=== PATIENT | female | born 1950 | race Caucasian/White ===

== ENCOUNTER → 2018-12-29 | Outpatient (CLI) | payer MEDICARE ==
[~2018-12-29] MED LIST: ASPI-586 PO; BUSP10TA95 PO; CARV6.25 PO; CATHETER FLUSH 10 ML SYR IV PRN; CLOP75TA69 PO; FLUT1BLS IH; GABA-488 PO; LISI-552 PO; PRD10T PO; REGADENOSON 0.4 MG/5 ML SYR (LEXISCAN) IV ONE; ROSU10TA22 PO; RT-ALBUINH INH; TRAM50TA2 PO
--- NOTE | 2018-12-29 15:20 | STRESS TEST ---
DATE OF SERVICE: 12/29/2018 LEXISCAN MYOVIEW STRESS TEST REPORT REFERRING PHYSICIAN: [facility]. Baseline heart rate is 87. Baseline blood pressure is 146/75. Baseline EKG is sinus rhythm with no ischemic changes. In summary, the patient was injected with 10.45 mCi of technetium-99 Myoview and the resting images were obtained. Then, the patient received 0.4 mg of Lexiscan followed by 30.4 mCi of technetium-99 Myoview. Throughout the test, there were no EKG changes. The resting and stress images were reviewed and compared in the short axis, horizontal long axis, and vertical long axis views. Review of the images showed good radiotracer uptake with no significant ischemia or infarction. SSS is 0. TID value 1.09. On the gated images, the left ventricle appeared to be normal size with normal contractility. Calculated ejection fraction is 52%. CONCLUSION: 1. The patient tolerated Lexiscan well. 2. No significant ischemia or infarction on SPECT images. 3. Normal left ventricular size with normal contractility. Calculated ejection fraction is 52%. Job ID: [id number] DocumentID: [id number] Dictated Date: 12/29/2018 15:06:04 Hand Assembler Date: 12/29/2018 15:19:44 Dictated By: CEDRIC THOMPSON MD
== END ==
LOC: EDUNIT# 12-28 10:44 → CARD 07:57
PROVIDERS: ATTEND Internal Medicine Cardiovascular Disease
DX: R07.89 Other chest pain (principal); I25.10 Atherosclerotic heart disease of native coronary artery without angina pectoris; I10 Essential (primary) hypertension; E78.2 Mixed hyperlipidemia; I08.2 Rheumatic disorders of both aortic and tricuspid valves; Z72.0 Tobacco use
CPT/HCPCS: 78452; 93017; 93306

== ENCOUNTER 2019-01-05 07:53 | Day surgery (SDC) | payer MEDICARE ==
[~2019-01-05] VITALS: Ht 154.9 cm; Wt 54.4 kg
[2019-01-05] VITALS (14 sets, daily range): BP systolic 116–167; BP diastolic 44–94
[2019-01-05] MEDS ORDERED: HEParin (CATH LAB) 2,000 ML IV ONE (07:56)
[2019-01-05] MEDS ORDERED: NS IV 1000 ML 1,000 ML ONE (07:56)
[2019-01-05] MEDS ORDERED: NS IV 1000 ML 1,000 ML IV SCH (08:01)
[2019-01-05 08:24] LABS: HEMOGLOBIN 13.2 G/DL (11.5-16.0); MEAN PLATELET VOLUME 8.9 FL (7.4-10.4); RED CELL DISTRIBUTION WIDTH 14.5 % (10.0-14.5)
[2019-01-05] MEDS ORDERED: BUSP10TA95 PO (08:35)
[2019-01-05] MEDS ORDERED: ASPI-586 PO (08:35)
[2019-01-05] MEDS ORDERED: GABA-488 PO (08:35)
[2019-01-05] MEDS ORDERED: LISI-552 PO (08:35)
[2019-01-05] MEDS ORDERED: FLUT1BLS IH (08:35)
[2019-01-05] MEDS ORDERED: PRD10T PO (08:35)
[2019-01-05] MEDS ORDERED: CARV6.25 PO (08:35)
[2019-01-05] MEDS ORDERED: CLOP75TA69 PO (08:35)
[2019-01-05] MEDS ORDERED: TRAM50TA2 PO (08:35)
[2019-01-05] MEDS ORDERED: ROSU10TA22 PO (08:35)
[2019-01-05] MEDS ORDERED: RT-ALBUINH INH (08:35)
[2019-01-05 08:36] LABS: BILIRUBIN,URINE NEGATIVE (NEGATIVE); CLARITY,URINE CLEAR; COLOR,URINE YELLOW; GLUCOSE, URINE (UA) NEGATIVE (NEGATIVE); KETONES,URINE NEGATIVE (NEGATIVE); LEUKOCYTE ESTERASE ,URINE 1+ (NEGATIVE); NITRITE,URINE NEGATIVE (NEGATIVE); PH,URINE 5 (5-9); PROTEIN,URINE 1+ (NEGATIVE); UROBILINOGEN,URINE NORMAL (NORMAL)
[2019-01-05 08:39] LABS: INR 0.9 (0.8-1.4); PROTHROMBIN TIME PATIENT 12.4 SEC (12.2-14.7)
[2019-01-05 08:49] LABS: POTASSIUM 3.9 MMOL/L (3.6-5.0)
[2019-01-05 08:50] LABS: ALBUMIN 4.2 GM/DL (3.2-4.5); BILIRUBIN,TOTAL 0.3 MG/DL (0.1-1.0); CALCIUM 9.9 MG/DL (8.5-10.1); CREATININE SERUM 1.1 MG/DL (0.60-1.30)
--- NOTE | 2019-01-05 08:52 | Diagnostic Imaging Report ---
INDICATION: Preop for peripheral angiography and stent placement. Time of exam: 8:33 AM No prior studies are available for comparison. The heart size is normal. The pulmonary vascularity is unremarkable. The lungs are clear. No infiltrate, effusion or pneumothorax is detected. Impression: No acute cardiopulmonary process is detected. Dictated by: Dictated on workstation # [id number]
[2019-01-05 08:55] LABS: BACTERIA,URINE TRACE /HPF; RBC,URINE RARE /HPF
[2019-01-05] MEDS ORDERED: fentaNYL INJECTION 100 MCG/2 ML AMP ONE (09:38)
[2019-01-05] MEDS ORDERED: MIDAZOLAM 5 MG/5 ML (VERSED) VIAL ONE (09:38)
[2019-01-05] MEDS ORDERED: HEParin 1000 UNIT/ML (10ML VIAL) FOR BOLUS ONE (09:38)
--- NOTE | 2019-01-05 09:40 | Cardiac Procedure Note-CS/ASA ---
Pre-Procedure Note Pre-Op Procedure Note H&P Reviewed The H&P was reviewed, patient examined and no changes noted. Date H&P Reviewed: January 05, 2019 Time H&P Reviewed: 09:40 Conscious Sedation Pre-Proced Time 09:40 ASA Score 3 For ASA 3 and 4: Consider anesthesia and medical clearance. Also, for patients with a history of failed moderate sedation consider anesthesia. Airway Lungs Heart ASA score ASA 1: a normal healthy patient ASA 2: a patient with a mild systemic disease (mid diabetes, controlled hypertension, obesity x ASA 3: a patient with a severe systemic disease that limits activity (angina, COPD, prior Myocardial infarction) ASA 4: a patient with an incapacitating disease that is a constant threat to life (CHF, renal failure) ASA 5: a moribund patient not expected to survive 24 hrs. (ruptured aneurysm) ASA 6: a declared brain- patient whose organs are being harvested. For emergent operations, add the letter E after the classification Mallampati Classification Grade 3 Sedation Plan Analgesia, Amnesia, Plan communicated to team members, Discussed options with patient/fam, Discussed risks with patient/fam The patient is an appropriate candidate to undergo the planned procedure, sedation, and anesthesia. The patient immediately re-assessed prior to indication. CEDRIC THOMPSON MD January 05, 2019 09:40
[2019-01-05] MEDS: PANTOPRAZOLE 40 MG (PROTONIX) VIAL IV SCH (14:02)
[2019-01-05] MEDS ORDERED: RT-ALBUTEROL SULF 2.5 MG/3 ML PRE-MIX VIAL INH SCH (16:00)
[2019-01-05] MEDS ORDERED: PATIENT MAY USE OWN MEDS, ALL PO SCH (16:00)
[2019-01-05] MEDS: NS IV 1000 ML 1,000 ML IV SCH (17:33)
--- NOTE | 2019-01-05 18:14 | Peripheral Report ---
Peripheral Report Physician (s)/Distance Education Director (s) Physician CEDRIC THOMPSON MD Pre-Procedure Diagnosis Pre-Procedure Diagnosis: claudication Post-Procedure Note Procedure Start Date: January 05, 2019 Name of Procedure: Aortic arch angiogram Abdominal aortogram with bilateral runoff Findings/Procedure Note PROCEDURE NOTE: 68 years old lady with history of peripheral arterial disease, had multiple interventions in the past. Moved to our area recently, has been having increasing pain at her left leg and left foot which has been worsening recently. Came to establish care in my office. Had palpable pulse but was having significant pain in her left leg. AMADOU was normal, TBI was abnormal. Due to her extensive history I decided to proceed with peripheral angiogram. After explaining the procedure to the patient, all pros and cons were explained, all questions were answered. The patient signed the consent and then she was placed on the cardiac catheterization laboratory. The patient was placed on the cardiac catheterization laboratory. Groin was prepped SL fashion local anesthesia was used. Sheath placed in the right femoral artery, pigtail catheter was advanced to the abdominal aorta and automated runoff through the abdominal aorta and both legs was done. The flow at the left leg was slower than the right and I was suspicious of disease below the trifurcation I advanced a JR catheter to the bifurcation, patient had kissing iliac stents protruding into the abdominal aorta, I was unable to advance the wire through the left iliac stent I decided to do angiogram and runoff from the ostium then did DSA imaging to the trifurcation and at the foot level. Patient was noted to have severe stenosis in her renal arteries I decided to proceed with selective angiogram to the renal arteries and evaluate her underlying disease. I advanced IM curved short guide to the abdominal aorta and attempted to access the left renal artery without success. I injected small amount of contrast and I noted that there is a dissection in the aorta and subsequently I removed the catheter then advanced the pigtail catheter to the descending thoracic aorta and did angiogram then advance it to the aortic shadow and repeated the angiogram to the arch then pulled it down again to the descending aorta and used a larger amount of contrast for better visualization of the descending aorta and abdominal aorta. At that point over a wire I removed the pigtail catheter and removed the sheath. Patient was noted to have good pulse in her groin bilaterally and good dorsalis pedis pulse bilaterally with slightly better on the right side FINDINGS: Aortic arch angiogram: Ectasia of the aortic arch, no dissection, origin of the innominate artery, left carotid and left subclavian artery showed some tortuosity, ascending thoracic aorta is slightly prominent. Descending thoracic aortogram: Large aneurysm in the descending arises aorta extending to the abdominal aorta with heavy atherosclerotic plaques. Abdominal aortogram: Suprarenal aortic aneurysm, catheter induced dissection not flow limiting. Left renal artery has severe stenosis, right renal artery has mild to moderate stenosis, mesenteric artery were not well visualized, bif urcation showed bilateral iliac stents that are extending into the aorta. Patent with no obstructive disease. A stent was noted in the aorta infrarenally that is much smaller than the size of the aorta, not affecting the flow, CTA showed the stent in the SMA Bilateral lower extremity runoff: Patent right iliac stent with good flow down to the trifurcation, the left iliac stent is patent with slightly slower flow down in the left SFA to the trifurcation, below the trifurcation was the artery has sluggish flow, were not well visualized CONCLUSIONS: 1. Large descending thoracic aortic aneurysm extending to the abdominal aorta suprarenally with heavy atherosclerotic plaques and disease in the thoracic and abdominal aorta. 2. Small stent was noted in the abdomen, noted to be in SMA 3. Severe left renal artery stenosis 4. Mild to moderate right renal artery stenosis 5. Normal aortic arch, ascending aorta and great vessels of the neck with slight ectasia with no significant aneurysm or dissection 6. Patent bilateral iliac stents kissing stent extending into the abdominal aorta 7. Mild to moderate disease in the SFA bilaterally, the flow at the left lower extremity is slightly slower than the right down to the trifurcation, below the trifurcation of the arteries were not well visualized 8. Iatrogenic abdominal aortic dissection not affecting the flow DISCUSSION AND RECOMMENDATIONS: Patient had extensive aortic disease that requires surgical evaluation and intervention. She is considered at high risk. I was able to forward her angiogram imaging to Dr. Rock Rivas who reviewed them with me and recommended considering advanced tertiary care center evaluation as an outpatient, recommended monitoring her overnight than discharging her. I will continue monitoring and repeat CT of the aorta Anesthesia Type: Conscious Sedation Estimated blood loss (mL): 25 ml Contrast Amount: 144 ml Total Radiation Dose: 361 mGy Post-Procedure Diagnosis Post-operative diagnosis: Peripheral arterial disease Thoracic aortic aneurysm Abdominal aortic aneurysm Hypertension Hyperlipidemia CEDRIC THOMPSON MD January 05, 2019 18:14
[2019-01-05] MEDS: busPIRone 10 MG (BUSPAR) TAB PO SCH (20:49)
[2019-01-05] MEDS: CARVEDILOL 6.25 MG (COREG) TAB PO SCH (20:49)
[2019-01-05] MEDS: RT-ALBUTEROL SULF 2.5 MG/3 ML PRE-MIX VIAL INH SCH (20:52)
[2019-01-05] MEDS ORDERED: ROSUVASTATIN 10 MG (CRESTOR) TABLET PO SCH (21:00)
[2019-01-05] MEDS ORDERED: NON-FORMULARY MEDICATION 1 EA EA (Buspirone HCl 10 MG) PO SCH (21:00)
[2019-01-06] VITALS (12 sets, daily range): BP systolic 125–151; BP diastolic 46–74
[2019-01-06] MEDS: NS IV 1000 ML 1,000 ML IV SCH (02:33)
[2019-01-06 03:46] LABS: HEMOGLOBIN 11.3 G/DL (11.5-16.0); MEAN PLATELET VOLUME 9.4 FL (7.4-10.4); RED CELL DISTRIBUTION WIDTH 14.5 % (10.0-14.5); WHITE BLOOD COUNT 8.6 10^3/uL (4.3-11.0)
[2019-01-06 04:09] LABS: ALBUMIN 3.3 GM/DL (3.2-4.5); BILIRUBIN,TOTAL 0.2 MG/DL (0.1-1.0); CALCIUM 8.7 MG/DL (8.5-10.1); CREATININE SERUM 0.95 MG/DL (0.60-1.30); POTASSIUM 4.1 MMOL/L (3.6-5.0); TOTAL PROTEIN 5.3 GM/DL (6.4-8.2)
[2019-01-06] MEDS ORDERED: predniSONE 10 MG TAB PO SCH (07:00)
[2019-01-06] MEDS: RT-ALBUTEROL SULF 2.5 MG/3 ML PRE-MIX VIAL INH SCH (07:24)
--- NOTE | 2019-01-06 08:23 | Cardiology Progress Note ---
Subjective Date Seen by Provider: January 06, 2019 Time Seen by Provider: 08:19 Subjective/Events-last exam patient is laying down in bed, feeling well. Denied any chest pain or shortness of breath denied any abdominal pain, groin is healing well. Review of Systems General: No Chills, No Night Sweats, No Fatigue, No Malaise, No Appetite, No Other HEENT: No Head Aches, No Visual Changes, No Eye Pain, No Ear Pain, No Dysphasia, No Sinus Congestion, No Post Nasal Drip, No Sore Throat, No Other Pulmonary: No Dyspnea, No Cough, No Pleuritic Chest Pain, No Other Cardiovascular: No: Chest Pain, Palpitations, Orthopnea, Paroxysmal Noc. Dyspnea, Edema, Lt Headedness, Other Objective-Cardiology Exam Last Set of Vital Signs Vital Signs 01/05/19 01/05/19 01/06/19 20:00 21:00 08:00 Temp 96.6 Pulse 68 Resp 34 B/P (MAP) 136/53 (80) Pulse Ox 96 O2 Delivery Nasal Cannula O2 Flow Rate 2.00 Capillary Refill : Less Than 3 Seconds I&O Intake and Output 01/06/19 00:00 Intake Total 240 ml Balance 240 ml Intake Oral 240 ml # Voids 3 # Bowel Movements 2 General: Alert, Oriented X3, Cooperative HEENT: Atraumatic, PERRLA Neck: Supple, No JVD, No Thyromegaly Lungs: Clear to Auscultation, Normal Air Movement Heart: Regular Rate, Normal S1, Normal S2, No Murmurs Abdomen: Normal Bowel Sounds, Soft, No Tenderness, No Hepatosplenomegaly, No Masses Extremities: No Clubbing, No Cyanosis, No Edema, Normal Pulses, No Tenderness/Swelling Skin: No Rashes, No Breakdown, No Significant Lesion Neuro: Normal Gait, Normal Speech, Strength at 5/5 X4 Ext, Normal Tone, Sensation Intact Psych/Mental Status: Mental Status NL, Mood NL Results Lab Laboratory Tests 01/06/19 03:25 A/P-Cardiology Admission Diagnosis peripheral arterial disease Claudication Thoracic aortic aneurysm Hypertension Hyperlipidemia Assessment/Plan Peripheral arterial disease, thoracic aortic aneurysm, bilateral iliac stents, status post complex diagnostic angiogram, findings discussed below 1. Large descending thoracic aortic aneurysm extending to the abdominal aorta suprarenal with heavy atherosclerotic plaques and disease in the thoracic and abdominal aorta. 2. Small stent was noted in the abdomen, noted to be in SMA 3. Severe left renal artery stenosis 4. Mild to moderate right renal artery stenosis 5. Normal aortic arch, ascending aorta and great vessels of the neck with slight ectasia with no significant aneurysm or dissection 6. Patent bilateral iliac stents kissing stent extending into the abdominal aorta 7. Mild to moderate disease in the SFA bilaterally, the flow at the left lower extremity is slightly slower than the right down to the trifurcation, below the trifurcation of the arteries were not well visualized 8. Iatrogenic abdominal aortic dissection not affecting the flow Lower extremities pain, could be due to small vessel disease, medical therapy, not a candidate for intervention Hypertension, monitor blood pressure Hyperlipidemia, continue on statin Severe renal artery stenosis, monitor renal function Had a long discussion with Dr. Rock Rivas regarding her condition, she is considered at very high risk for any seizure or surgery. Recommended referring [facility] to [facility] such as as an outpatient CEDRIC THOMPSON MD January 06, 2019 08:23
--- NOTE | 2019-01-06 08:27 | Discharge Inst-Post CATH ---
Discharge Inst-CATH/EP Post Cardiac Cath/EP D/C Inst Follow Up/Plan Appointment with Dr. THOMPSON's office in 2 weeks <b>CARDIAC CATH/EP PROCEDURE DISCHARGE INSTRUCTIONS</b> Cardiac Rehab Please be expecting a follow up call from Cardiac Rehab within in one week. ACTIVITY * Go Home directly and rest. * Limit activity of the leg (or wrist if it was used) for 7 days including aerobics, swimming, jogging, bicycling, etc. * Restrict stair-climbing for 7 days if possible, if not, climb up with your non-cath leg, then bring together on the same step. * Avoid lifting, pushing, pulling or excessive movement of the affected extremity for 7 days. * Customary sexual activity may be resumed after 2 days-use caution not to use a position that strains or causes pain to the affected extremity. * No driving for 24 hours. * NO SMOKING. * Avoid straining for bowel movements for 7 days. * Gentle walking on level ground is allowed. * Returning to work will depend on the type of procedure and the results. Your doctor will discuss this with you. CALL YOUR DOCTOR FOR ANY OF THE FOLLOWING: *If bleeding from the puncture site occurs- Apply gentle pressure to site with clean cloth and call your doctor or EMS. * If a knot or lump forms under the skin, increases in size, or causes pain. * If bruising appears to be worsening or moving further down your leg instead of disappearing. * Temperature above 101 F. CARE OF YOUR GROIN INCISION; * Bruising or purple discoloration of the skin near the puncture site is common. * You may shower only, no bathtub bathing for 5 days. Be careful to avoid slipping as your leg may feel stiff. * If a closure device was used on your femoral artery, please see the attached guide regarding care of the device and your leg. * Leave dressing on FOR 24 hours. CARE OF YOUR WRIST INCISION; * Bruising or purple discoloration of the skin near the puncture site is common. * You may shower. * DO NOT submerge wrist. * Leave dressing on FOR 24 hours. CEDRIC THOMPSON MD January 06, 2019 08:27
[2019-01-06] MEDS ORDERED: IOHEXOL 350 MG/ML 100 ML (OMNIPAQUE 350) VIAL IV ONE (08:45)
[2019-01-06] MEDS ORDERED: NS 100 ML (IVPB) BAG IV ONE (08:45)
[2019-01-06] MEDS ORDERED: HOLD METFORMIN - RECEIVED CONTRAST 20 ML VIAL IV SCH (08:45)
[2019-01-06] MEDS ORDERED: CLOPIDOGREL 75 MG (PLAVIX) TABLET PO SCH (09:00)
[2019-01-06] MEDS ORDERED: NON-FORMULARY MEDICATION 1 EA EA (Fluticasone/Vilanterol (Breo Ellipta 200-25 Mcg INH) 1 E IH SCH (09:00)
[2019-01-06] MEDS ORDERED: ASPIRIN E.C. 81 MG (ECOTRIN) TAB PO SCH (09:00)
[2019-01-06] MEDS ORDERED: lisINopril 20 MG (PRINIVIL) TABLET PO SCH (09:00)
[2019-01-06] MEDS ORDERED: GABAPENTIN 300 MG (NEURONTIN) CAP PO SCH (09:00)
[2019-01-06] MEDS ORDERED: NON-FORMULARY MEDICATION 1 EA EA (Aspirin (Aspir 81) 81 MG) PO SCH (09:00)
[2019-01-06] MEDS: PANTOPRAZOLE 40 MG (PROTONIX) VIAL IV SCH (09:03)
[2019-01-06] MEDS: busPIRone 10 MG (BUSPAR) TAB PO SCH (09:04)
[2019-01-06] MEDS: CARVEDILOL 6.25 MG (COREG) TAB PO SCH (09:04)
--- NOTE | 2019-01-06 12:49 | Diagnostic Imaging Report ---
INDICATION: Aortic aneurysm. TECHNIQUE: Axial imaging through the chest, abdomen, and upper pelvis was performed before and after the administration of intravenous contrast. CT angiography protocol was utilized. Multiplanar, 3D, and MIP reformations were also performed. COMPARISON: No prior CT studies are available for comparison. FINDINGS: The thyroid is enlarged and contains multiple low-density masses, suggestive of a multinodular goiter. There is a three-vessel branching pattern to the aortic arch. The aortic root and ascending thoracic aorta appear to be normal in caliber. There is aneurysmal dilatation of the proximal aspect of the aortic arch measuring up to 4.5 cm in transverse diameter. There is marked irregular plaquing throughout the arch as well as descending thoracic aorta with multifocal ulcerative plaques. There is aneurysmal dilatation of the descending thoracic aorta. At the hiatus, a large amount of circumferential mural plaquing is present. An aneurysm measures approximately 5.9 cm AP x 6.5 cm transverse. Just beyond the aortic hiatus and into the abdomen, there is a dissection flap present. Dense contrast is identified within the false lumen from conventional angiography study of one day earlier. Great vessels arise from the true lumen of the abdominal aorta. There may be a stenosis of the celiac origin. There is a stent within the superior mesenteric artery which appears to be patent. The upper abdominal aorta at the level of the dissection measures approximately 5.6 x 4.9 cm. Aorta appears to be normal in caliber at the level of the renal vessels. There is apparent high-grade stenosis of proximal aspect of the left renal artery. There is calcified plaque in the proximal right renal artery, however it appears patent. Continued significant mural thrombus within the abdominal aorta is seen throughout. There are kissing iliac stents bilaterally in the distal abdominal aorta. No periaortic fluid collection or evidence of rupture is identified. Liver is unremarkable. There are some stones within the gallbladder. No biliary ductal dilatation is seen. The pancreas and spleen are unremarkable. No adrenal mass is identified. A right renal cyst is noted. Bowel loops are unremarkable. There is no ascites. IMPRESSION: 1. Thoracic aortic aneurysm involving the aortic arch as well as the descending thoracic aorta. There is marked irregular mural plaquing throughout the thoracic aorta with some probable ulcerative plaque present. No thoracic aortic dissection is seen. 2. Suprarenal abdominal aortic aneurysm which does contain a short segment of dissection. The great vessels appear to arise from the true lumen. No periaortic fluid collection or rupture is seen. 3. Findings suggestive of a high-grade stenosis of the left renal artery. 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 SMA does contain a stent and appears to be patent. Dictated by: Dictated on workstation # [id number]
== END 2019-01-06 11:18 | disposition home or self-care (01) ==
LOC: CATH 07:53 → ICU 11:33 → CATH 01-06 11:18
PROVIDERS: ATTEND Internal Medicine Cardiovascular Disease
DX: I70.203 Unspecified atherosclerosis of native arteries of extremities, bilateral legs (principal); I71.4 Abdominal aortic aneurysm, without rupture; I71.2 Thoracic aortic aneurysm, without rupture; I10 Essential (primary) hypertension; E78.5 Hyperlipidemia, unspecified; I70.1 Atherosclerosis of renal artery; I25.10 Atherosclerotic heart disease of native coronary artery without angina pectoris; E78.2 Mixed hyperlipidemia; R07.89 Other chest pain; F17.210 Nicotine dependence, cigarettes, uncomplicated; R09.89 Other specified symptoms and signs involving the circulatory and respiratory systems; J44.9 Chronic obstructive pulmonary disease, unspecified; R82.998 Other abnormal findings in urine; Z79.899 Other long term (current) drug therapy; Z79.82 Long term (current) use of aspirin; Z79.02 Long term (current) use of antithrombotics/antiplatelets
CPT/HCPCS: 36415; 71045; 71275; 74175; 75630; 80053; 80061; 81000; 85027; 85610; 85730; 87081; 87088; 94640

== ENCOUNTER 2019-01-20 20:56 | Outpatient (CLI) | payer MEDICARE ==
[~2019-01-20 20:56] MED LIST changes: -CATHETER FLUSH 10 ML SYR IV PRN; -REGADENOSON 0.4 MG/5 ML SYR (LEXISCAN) IV ONE
== END 2019-01-21 06:45 | disposition home or self-care (01) ==
LOC: SLEEP 20:56
PROVIDERS: ATTEND Nurse Practitioner Family
DX: G47.10 Hypersomnia, unspecified (principal); G47.36 Sleep related hypoventilation in conditions classified elsewhere; R05 Cough; R09.02 Hypoxemia; R06.89 Other abnormalities of breathing
CPT/HCPCS: 95810

== ENCOUNTER → 2019-03-07 | Outpatient (CLI) | payer MEDICARE ==
[~2019-03-07] MED LIST changes: +RT-ALBUTEROL SULF 2.5 MG/3 ML PRE-MIX VIAL INH ONE
[2019-03-07 15:45] LABS: ABG BASE EXCESS 9.1 MMOL/L (-2.5-2.5); ABG OXYGEN SATURATION 91 % (94-100); ABG PCO2 53 MMHG (35-45); ABG PH 7.42 (7.37-7.43); ABG PO2 55 MMHG (79-93); ABG TCO2 35.7 MMOL/L (21.0-31.0); ALLENS TEST YES-POS; INSPIRED O2 RA; PATIENT TEMP 97; VENTILATOR NO
== END ==
LOC: RT 14:36
PROVIDERS: ATTEND Nurse Practitioner Family
DX: J30.9 Allergic rhinitis, unspecified (principal); G47.10 Hypersomnia, unspecified; G47.36 Sleep related hypoventilation in conditions classified elsewhere; R09.02 Hypoxemia
CPT/HCPCS: 36600; 82805; 94060; 94726

== ENCOUNTER 2019-03-17 20:42 | Outpatient (CLI) | payer MEDICARE ==
[~2019-03-17 20:42] MED LIST changes: -RT-ALBUTEROL SULF 2.5 MG/3 ML PRE-MIX VIAL INH ONE
== END 2019-03-18 06:23 | disposition home or self-care (01) ==
LOC: SLEEP 20:42
PROVIDERS: ATTEND Nurse Practitioner Family
DX: G47.33 Obstructive sleep apnea (adult) (pediatric) (principal); G47.10 Hypersomnia, unspecified; G47.36 Sleep related hypoventilation in conditions classified elsewhere
CPT/HCPCS: 95811

== ENCOUNTER 2019-04-19 09:23 | Emergency (ER) | payer MEDICARE ==
[~2019-04-19] VITALS: Ht 157.5 cm; Wt 55.8 kg
[2019-04-19] MEDS ORDERED: RT-ALBUTEROL/IPRATROPIUM 3 ML (DUONEB) VIAL INH ONE ×3 (09:45→14:15)
[2019-04-19] MEDS ORDERED: methylPREDNISolone 125 MG (Solu-MEDROL) VIAL IVP ONE (09:45)
--- NOTE | 2019-04-19 09:50 | ED Dyspnea ---
General Stated Complaint: SOB Source of Information: Patient Exam Limitations: Language Barrier (daughter is translating) History of Present Illness Date Seen by Provider: Apr 19, 2019 Time Seen by Provider: 09:40 Initial Comments The patient is a very pleasant 68-year-old female who presents for evaluation of shortness of breath and decreased appetite over the last 2 days. The patient is primarily [place]raini-speaking and her daughter is present and is translating. The patient declined any translating services. The patient is alert and oriented 4, calm, and appears to be in mild respiratory distress. She does have a history of COPD and she is trying to quit smoking at this time. She denies fevers or chills, productive cough, chest pain, diaphoresis, palpitations, abdominal pain, back or flank pain, chest pain, dizziness, or syncope. Timing/Duration: Other (2 days) Severity: Moderate Activities at Onset: None Prior Episodes/Possible Cause: Occasional Episodes Modifying Factors: Improves With Activity (worsens), Improves With Albuterol Nebulizer (improves) Associated Symptoms: Cough, Loss of Appetite, Wheezing Allergies and Home Medications Allergies Coded Allergies: aspirin (Verified Allergy, Mild, 01/05/19) Home Medications Albuterol Sulfate 1 Puff Puff, 2 PUFF INH QID, (Reported) 1 PUFF = 90 MCG Aspirin 81 Mg Tablet.dr, 81 MG PO DAILY, (Reported) Buspirone HCl 10 Mg Tablet, 10 MG PO BID, (Reported) Carvedilol 6.25 Mg Tablet, 6.25 MG PO BID, (Reported) Clopidogrel Bisulfate 75 Mg Tablet, 75 MG PO DAILY, (Reported) Fluticasone/Vilanterol 1 Each Blst.w.dev, 1 EACH IH DAILY, (Reported) Gabapentin 300 Mg Capsule, 300 MG PO DAILY, (Reported) Lisinopril 20 Mg Tablet, 20 MG PO DAILY, (Reported) Prednisone 10 Mg Tab, 10 MG PO DAILY, (Reported) Rosuvastatin Calcium 10 Mg Tablet, 10 MG PO HS, (Reported) Tramadol HCl 50 Mg Tablet, 50 MG PO Q4H, (Reported) Patient Home Medication List Home Medication List Reviewed: Yes Review of Systems Review of Systems Constitutional: other (decreased appetite) EENTM: no symptoms reported Respiratory: cough, short of breath, wheezing Cardiovascular: no symptoms reported Gastrointestinal: no symptoms reported Genitourinary: no symptoms reported Musculoskeletal: no symptoms reported Skin: no symptoms reported Psychiatric/Neurological: No Symptoms Reported Endocrine: No Symptoms Reported Hematologic/Lymphatic: No Symptoms Reported All Other Systems Reviewed Negative Unless Noted: Yes Past Ywklwhn-Jgubjp-Wyrefs Hx Past Med/Social Hx: Reviewed Nursing Past Med/Soc Hx Patient Social History Type Used: Cigarettes 2nd Hand Smoke Exposure: Yes Recent Hopitalizations: Yes Past Medical History Bowel Surgery Respiratory: Yes Asthma Currently Using CPAP: Yes Cardiac: Yes High Cholesterol Neurological: No Genitourinary: No Gastrointestinal: Yes Irritable Bowel Cancer: No Blood Disorders: No Adverse Reaction/Blood Tranf: No Physical Exam Vital Signs Vital Signs - First Documented 04/19/19 09:32 Temp 98.9 Pulse 69 Resp 18 B/P (MAP) 130/51 (77) Pulse Ox 97 O2 Delivery Nasal Cannula O2 Flow Rate 3.00 Capillary Refill : Height, Weight, BMI Height: 5'1.00" Weight: 120lbs. 0.0oz. [id number]; 22.7 BMI Method: General Appearance: WD/WN, Mild Distress (respiratory) HEENT: PERRL/EOMI, Pharynx Normal Neck: Full Range of Motion, Normal Inspection, Supple Respiratory: Decreased Breath Sounds, Respiratory Distress (mild), Wheezing (diffuse) Cardiovascular: Regular Rate, Rhythm, No Edema, No JVD, No Murmur, Normal Peripheral Pulses Gastrointestinal: Normal Bowel Sounds, Non Tender, Soft Extremity: Normal Capillary Refill, Non Tender, No Calf Tenderness Neurologic/Psychiatric: Alert, Oriented x3, No Motor/Sensory Deficits, Normal Mood/Affect, college dean II-XII Norm as Tested Skin: Normal Color, Warm/Dry Progress/Results/Core Measures Results/Orders Lab Results Laboratory Tests Test 04/19/19 09:50 Range/Units White Blood Count 8.5 4.3-11.0 10^3/uL Red Blood Count 3.32 L 4.35-5.85 10^6/uL Hemoglobin 10.0 L 11.5-16.0 G/DL Hematocrit 31 L 35-52 % Mean Corpuscular Volume 92 80-99 FL Mean Corpuscular Hemoglobin 30 25-34 PG Mean Corpuscular Hemoglobin Concent 33 32-36 G/DL Red Cell Distribution Width 12.6 10.0-14.5 % Platelet Count 244 130-400 10^3/uL Mean Platelet Volume 8.1 7.4-10.4 FL Neutrophils (%) (Auto) 65 42-75 % Lymphocytes (%) (Auto) 24 12-44 % Monocytes (%) (Auto) 9 0-12 % Eosinophils (%) (Auto) 2 0-10 % Basophils (%) (Auto) 0 0-10 % Neutrophils # (Auto) 5.5 1.8-7.8 X 10^3 Lymphocytes # (Auto) 2.0 1.0-4.0 X 10^3 Monocytes # (Auto) 0.8 0.0-1.0 X 10^3 Eosinophils # (Auto) 0.2 0.0-0.3 10^3/uL Basophils # (Auto) 0.0 0.0-0.1 10^3/uL Sodium Level 113 *L 135-145 MMOL/L Potassium Level 5.7 H 3.6-5.0 MMOL/L Chloride Level 75 L 98-107 MMOL/L Carbon Dioxide Level 30 21-32 MMOL/L Anion Gap 8 5-14 MMOL/L Blood Urea Nitrogen 25 H 7-18 MG/DL Creatinine 1.58 H 0.60-1.30 MG/DL Estimat Glomerular Filtration Rate 32 BUN/Creatinine Ratio 16 Glucose Level 125 H 70-105 MG/DL Calcium Level 9.1 8.5-10.1 MG/DL Corrected Calcium 9.4 8.5-10.1 MG/DL Total Bilirubin 0.2 0.1-1.0 MG/DL Aspartate Amino Transf (AST/SGOT) 21 5-34 U/L Alanine Aminotransferase (ALT/SGPT) 18 0-55 U/L Alkaline Phosphatase 76 40-136 U/L Troponin I < 0.30 <0.30 NG/ML Pro-B-Type Natriuretic Peptide 1141.0 H <75.0 PG/ML Total Protein 6.0 L 6.4-8.2 GM/DL Albumin 3.6 3.2-4.5 GM/DL My Orders Orders - UVALDO GUTIÉRREZ DO Cbc With Automated Diff (04/19/19 09:35) Comprehensive Metabolic Panel (04/19/19 09:35) Chest 1 View Ap/Pa Only (04/19/19 09:35) Ekg Tracing (04/19/19 09:35) O2 (04/19/19 09:35) Ed Iv/Invasive Line Start (04/19/19 09:35) Monitor-Rhythm Ecg Trace Only (04/19/19 09:35) Svn Small Volume Nebulizer (04/19/19 09:35) Albuterol/Ipra Inhalation Soln (Duoneb I (04/19/19 09:45) Svn Small Volume Nebulizer (04/19/19 09:35) Methylprednisolone Sod Succ (Solu-Medrol (04/19/19 09:45) Probnp Fs (04/19/19 09:35) Troponin I (04/19/19 09:35) Ns Iv 1000 Ml (Sodium Chloride 0.9%) (04/19/19 11:00) Medications Given in ED Current Medications Medications Dose Ordered Sig/Carli Route Start Time Stop Time Status Last Admin Dose Admin Albuterol/ Ipratropium 3 ml ONCE ONCE INH 04/19/19 09:45 04/19/19 09:46 DC 04/19/19 09:53 3 ML Methylprednisolone Sodium Succinate 125 mg ONCE ONCE IVP 04/19/19 09:45 04/19/19 09:46 DC 04/19/19 09:53 125 MG Vital Signs/I&O 04/19/19 04/19/19 09:32 09:50 Temp 98.9 Pulse 69 Resp 18 B/P (MAP) 130/51 (77) Pulse Ox 97 96 O2 Delivery Nasal Cannula Nasal Cannula O2 Flow Rate 3.00 3.00 Progress Progress Note : Progress Note @1115 - The patient and her family have been updated on lab and imaging results. They are agreeable to transfer to [facility]. Dr. Khoury accepts admission at this time. Comment @0958 - Normal sinus rhythm, rate of 70, normal axis, no acute ischemic findings noted, no STEMI, reviewed and interpreted by myself Diagnostic Imaging Comments [facility], [place], [place] NAME: LON EDWARD [facility] REC#: [id number] PT STATUS: REG ER : 1950 PHYSICIAN: UVALDO GUTIÉRREZ DO ADMIT DATE: 04/19/19/ER FS Draft Date of Exam:04/19/19 CHEST 1 VIEW AP/PA ONLY INDICATION: Shortness of breath. COMPARISON: 01/05/2019. FINDINGS: The portable chest shows the lungs to be well-aerated and clear. There is no air trapping. The heart is at the upper limits of normal. There is no pulmonary edema. No pneumothorax or pleural effusion. No bony abnormalities. IMPRESSION: Mild cardiac enlargement with no acute changes. Dictated on workstation # [id number] Dict: 04/19/19 1021 Trans: 04/19/19 1023 [id number] Interpreted by: SVETLANA REYNOLDS MD Electronically signed by: Departure Impression Primary Impression: Acute hyponatremia Additional Impressions: COPD with respiratory distress, acute Elevated brain natriuretic peptide (BNP) level Appetite loss Disposition: XFER SHT-TRM HOSP Condition: Stable Transfer Time Spoke to Accepting Phy: 11:[address] Khoury accepts the transfer to [facility] Transfer Time: 11:40 Transfer Facility: [facility] Method of Transfer: EMS Departure-Patient Inst. Referrals: TRISH OSBORNE MD (PCP/Family) Primary Care Physician UVALDO GUTIÉRREZ DO Apr 19, 2019 09:50
[2019-04-19 10:04] LABS: WHITE BLOOD COUNT 8.5 10^3/uL (4.3-11.0)
[2019-04-19 10:05] LABS: BASOPHILS % (AUTO) 0 % (0-10); EOSINOPHILS # (AUTO) 0.2 10^3/uL (0.0-0.3); EOSINOPHILS % (AUTO) 2 % (0-10); HEMATOCRIT 31 % (35-52); LYMPHOCYTES % (AUTO) 24 % (12-44); MEAN CORPUSCULAR HEMOGLOBIN 30 PG (25-34); MEAN CORPUSCULAR HGB CONC 33 G/DL (32-36); MEAN CORPUSCULAR VOLUME 92 FL (80-99); MEAN PLATELET VOLUME 8.1 FL (7.4-10.4); MONOCYTES # (AUTO) 0.8 X 10^3 (0.0-1.0); MONOCYTES % (AUTO) 9 % (0-12); NEUTROPHILS # (AUTO) 5.5 X 10^3 (1.8-7.8); NEUTROPHILS % (AUTO) 65 % (42-75); PLATELET COUNT 244 10^3/uL (130-400); RED CELL DISTRIBUTION WIDTH 12.6 % (10.0-14.5)
--- NOTE | 2019-04-19 10:24 | Diagnostic Imaging Report ---
INDICATION: Shortness of breath. COMPARISON: 01/05/2019. FINDINGS: The portable chest shows the lungs to be well-aerated and clear. There is no air trapping. The heart is at the upper limits of normal. There is no pulmonary edema. No pneumothorax or pleural effusion. No bony abnormalities. IMPRESSION: Mild cardiac enlargement with no acute changes. Dictated by: Dictated on workstation # [id number]
[2019-04-19 10:40] LABS: ALANINE AMINOTRANSFERASE 18 U/L (0-55); ALBUMIN 3.6 GM/DL (3.2-4.5); ALKALINE PHOSPHATASE 76 U/L (40-136); BILIRUBIN,TOTAL 0.2 MG/DL (0.1-1.0); BUN/CREATININE RATIO 16; CALCIUM 9.1 MG/DL (8.5-10.1); CARBON DIOXIDE 30 MMOL/L (21-32); CREATININE SERUM 1.58 MG/DL (0.60-1.30); GFR ESTIMATED 32; GLUCOSE 125 MG/DL (70-105); POTASSIUM 5.7 MMOL/L (3.6-5.0)
[2019-04-19 10:41] LABS: CHLORIDE 75 MMOL/L (98-107)
[2019-04-19 10:42] LABS: SODIUM 113 MMOL/L (135-145)
[2019-04-19] MEDS ORDERED: NS IV 1000 ML 500 ML IV SCH (11:00)
[2019-04-19] MEDS ORDERED: RT-ALBUTEROL/IPRATROPIUM 3 ML (DUONEB) VIAL ONE (14:02)
--- NOTE | 2019-04-19 14:16 | NUR ---
1318: [facility] EMS unavailable for patient transfer to [place]. [facility] EMS captain called, they do not have a crew available. Reason for transport delay explained to patient and family.
[2019-04-19 15:17] VITALS: BP 124/76
== END 2019-04-19 15:17 | disposition short-term general hospital (02) ==
LOC: EDUNIT# 09:23 → ER FS 09:24
DX: E87.1 Hypo-osmolality and hyponatremia (principal); J44.9 Chronic obstructive pulmonary disease, unspecified; R06.03 Acute respiratory distress; R79.89 Other specified abnormal findings of blood chemistry; R63.0 Anorexia; J45.909 Unspecified asthma, uncomplicated; E78.00 Pure hypercholesterolemia, unspecified; K58.9 Irritable bowel syndrome, unspecified; Z88.6 Allergy status to analgesic agent; Z79.82 Long term (current) use of aspirin; Z79.02 Long term (current) use of antithrombotics/antiplatelets; Z77.22 Contact with and (suspected) exposure to environmental tobacco smoke (acute) (chronic)
CPT/HCPCS: 36415; 71045; 80053; 83880; 84484; 85025; 93005; 93041; 94640

== ENCOUNTER → 2019-06-30 | Outpatient (CLI) | payer MEDICARE ==
[~2019-06-30] MED LIST changes: +CATHETER FLUSH 10 ML SYR IV PRN; +HOLD METFORMIN - RECEIVED CONTRAST 20 ML VIAL IV SCH; +IOHEXOL 350 MG/ML 100 ML (OMNIPAQUE 350) VIAL IV ONE; +NS 100 ML (IVPB) BAG IV ONE
[2019-06-30 13:02] LABS: BUN/CREATININE RATIO 15; CREATININE SERUM 0.89 MG/DL (0.60-1.30); GFR ESTIMATED > 60
--- NOTE | 2019-06-30 14:25 | Diagnostic Imaging Report ---
EXAMINATION: CT Chest with intravenous contrast. TECHNIQUE: Multiple contiguous axial images were obtained through the chest after the uneventful administration of intravenous contrast. All CT scans use one or more of the following dose optimizing techniques: automated exposure control, MA and/or KvP adjustment based on a patient size and exam type, or iterative reconstruction. HISTORY: Cough. COMPARISON: 01/06/2019. FINDINGS: The lungs are clear without edema or pneumonia. No pleural effusion or pneumothorax. There is a stable 5 mm nodule in the right lower lobe (series 3, image 78). An area of scarring in the lingula is unchanged. There are few tree-in-bud nodules in the right middle lobe which are likely related to mild aspiration event. There is a complex thoracoabdominal aortic aneurysm. At the beginning of the aortic arch, the aneurysm measures 5.8 cm, previously 5.6 cm. The upper descending thoracic aorta is normal in size. There is an area of dilation at the level of the mitral valve which measures 5.4 x 7.2 cm, previously 4.9 x 7.0 cm. The upper abdominal portion of the aneurysm measures 5.1 x 4.5 cm, previously 5.1 x 4.3 cm. A stent is present in the superior mesenteric artery. There is severe stenosis of both renal artery origins. The infrarenal abdominal aorta is stenotic with a luminal minimal diameter of 8 mm, previously 9 mm. There is extensive ulcerated plaque throughout the aorta and extending into the right innominate artery. Left ventricle is dilated. Upper abdomen reveals cysts in the kidneys. There are no suspicious osseous lesions. IMPRESSION: 1. Complex thoracoabdominal aortic aneurysm which is mildly increased in size, now measuring up to 5.4 x 7.2 cm, previously 4.9 x 7.0 cm. 2. Stable pulmonary nodules without evidence for pneumonia. Dictated by: Dictated on workstation # [id number]
== END ==
LOC: RAD FS 12:23
PROVIDERS: ATTEND Nurse Practitioner Family
DX: I71.6 Thoracoabdominal aortic aneurysm, without rupture (principal); J98.4 Other disorders of lung; G47.33 Obstructive sleep apnea (adult) (pediatric); R91.8 Other nonspecific abnormal finding of lung field; Z72.0 Tobacco use
CPT/HCPCS: 36415; 71260; 82565; 84520

== ENCOUNTER → 2019-08-23 | Outpatient (CLI) | payer MEDICARE ==
[~2019-08-23] MED LIST changes: -CATHETER FLUSH 10 ML SYR IV PRN; -TRAM50TA2 PO; +TRM50T PO
[2019-08-23 09:56] LABS: BUN/CREATININE RATIO 15; CREATININE SERUM 0.78 MG/DL (0.60-1.30); GFR ESTIMATED > 60
--- NOTE | 2019-08-23 10:58 | Diagnostic Imaging Report ---
PROCEDURE: CT chest with contrast only. TECHNIQUE: Multiple contiguous axial images were obtained through the chest after administration of intravenous contrast. Auto Exposure Controls were utilized during the CT exam to meet ALARA standards for radiation dose reduction. INDICATION: COPD, cough, dyspnea. COMPARISON: Study compared 06/30/2019. FINDINGS: Some subsegmental scarring in the lingula stable. Symmetrical pulmonary hyperexpansion and likely centrilobular emphysema redemonstrated chronic. No acute pneumonia or dominant lung mass. No thoracic lymphadenopathy. Heterogeneous multinodular thyromegaly unchanged where partially visualized. No axillary, hilar, or mediastinal lymphadenopathy. No acute chest wall abnormality. Thickening of the left ventricular myocardium unchanged as coronary atherosclerosis. There is profound atherosclerotic plaque throughout the aneurysmal thoracic aorta. Plaque irregularities commencing at the level of the proximal transverse arch are associated with a stable aneurysmal dilatation without rupture and the vessel measuring 4.5 cm at that level. Atherosclerotic disease involves the proximal great vessels at or beyond their takeoffs. Distal large atherosclerotic but normal in caliber. There is marked irregular and likely mobile plaque within the descending thoracic aorta which proximally is remaining within normal limits of size distally. There is fusiform aneurysmal dilatation and tortuosity with the vessel measuring 5.5 cm just above the hiatus. This is unchanged. There is a stable small pericardial effusion. Profound atherosclerotic disease in the visualized abdominal aorta is present with a stable stenosis at the level of the renal arteries. Minimal luminal aortic opacification is 7-8 mm unchanged. There is a patent SMA stent. The takeoff of the celiac is stenotic and likely chronically occluded. There is severe atherosclerotic disease and stenoses involving the bilateral renal arteries with bilateral renal cortical cysts. Partially visualized liver and gallbladder are nonacute. The spleen is normal in size. IMPRESSION: 1. Stable thoracoabdominal aneurysmal dilatation without rupture with severe thoracoabdominal aortic atherosclerotic plaque, much of it complex ulcerated and likely mobile. 2. Small pericardial effusion and left ventricular enlargement stable. 3. Clear lungs without focal infiltrate or dominant lung mass. 4. No adverse development from prior and no complaint. Dictated by: Dictated on workstation # [id number]
== END ==
LOC: RAD FS 09:27
PROVIDERS: ATTEND Nurse Practitioner Family
DX: J44.9 Chronic obstructive pulmonary disease, unspecified (principal); I71.6 Thoracoabdominal aortic aneurysm, without rupture; I70.0 Atherosclerosis of aorta; I31.3 Pericardial effusion (noninflammatory); I51.7 Cardiomegaly; Z95.828 Presence of other vascular implants and grafts
CPT/HCPCS: 36415; 71260; 82565; 84520

== ENCOUNTER → 2020-01-26 | Outpatient (CLI) | payer MEDICARE ==
[~2020-01-26] MED LIST changes: -HOLD METFORMIN - RECEIVED CONTRAST 20 ML VIAL IV SCH; -IOHEXOL 350 MG/ML 100 ML (OMNIPAQUE 350) VIAL IV ONE; -NS 100 ML (IVPB) BAG IV ONE
[2020-01-26 16:03] LABS: CHLORIDE 107 MMOL/L (98-107); POTASSIUM 3.8 MMOL/L (3.6-5.0); SODIUM 150 MMOL/L (135-145)
[2020-01-26 16:04] LABS: ALANINE AMINOTRANSFERASE 12 U/L (0-55); ALBUMIN 3.4 GM/DL (3.2-4.5); ALKALINE PHOSPHATASE 68 U/L (40-136); BILIRUBIN,TOTAL 0.2 MG/DL (0.1-1.0); BUN/CREATININE RATIO 16; CALCIUM 8.9 MG/DL (8.5-10.1); CARBON DIOXIDE 31 MMOL/L (21-32); CREATININE SERUM 0.86 MG/DL (0.60-1.30); GFR ESTIMATED > 60; GLUCOSE 206 MG/DL (70-105); TOTAL PROTEIN 5.9 GM/DL (6.4-8.2)
[2020-01-27 14:55] LABS: TRIGLYCERIDES 86 MG/DL (<150); VLDL CHOLESTEROL 17 MG/DL (5-40)
[2020-01-27 15:00] LABS: CHOLESTEROL 124 MG/DL (< 200); HDL CHOLESTEROL 57 MG/DL (40-60)
== END ==
LOC: LAB FS 14:07
PROVIDERS: ATTEND Internal Medicine Cardiovascular Disease
DX: I10 Essential (primary) hypertension (principal); I25.10 Atherosclerotic heart disease of native coronary artery without angina pectoris; G47.9 Sleep disorder, unspecified; R94.2 Abnormal results of pulmonary function studies
CPT/HCPCS: 36415; 80053; 80061

== ENCOUNTER → 2020-08-24 | Outpatient (CLI) | payer MEDICARE ==
--- NOTE | 2020-08-24 15:42 | Diagnostic Imaging Report ---
CT Lung Screening INDICATION:58 pack year smoking history. Compared with chest CT performed with contrast 08/23/2019. TECHNIQUE: Noncontrast, low-dose CT imaging performed according to the lung cancer screening protocol. Auto Exposure Controls were utilize during the CT exam to meet ALARA standards for radiation dose reduction. COMPARISON:08/23/2019 FINDINGS:There is some mild air trapping and features of COPD but no suspicious nodule or dominant lung mass. There is some partial atelectasis in the right middle lobe as well as in the lingula. No findings suggestive of acute pneumonia. No thoracic lymphadenopathy. No effusion or pneumothorax. Aneurysm at the proximal arch of the aorta extends into the brachiocephalic artery with peripheral calcifications and showed no evidence for its rupture. At the arch, the vessel and aneurysm measured maximal transverse dimension 5.3 cm today, previously 4.8. The aneurysmal takeoff of the right innominate measures 3.6 x 3.0 cm today, previously same. The distal descending thoracic aorta is tortuous and aneurysmally dilated. Owing to its horizontal course, I feel its short axis dimension most accurately measures its true caliber and that today is 6 cm, previously 5.5 cm. Aneurysm extends through the hiatus into the suprarenal upper abdominal aorta where its not appreciably changed in caliber. No evidence for vessel rupture. No mediastinal or pleural hemorrhage. IMPRESSION: IMPRESSION:No suspicious lung mass, continued low-dose CT screening followup in one year's time recommended. LUNG-RADS CATEGORY:Category 2 MODIFIER:None OTHER SIGNIFICANT FINDINGS:Interval enlargement of the thoracic aneurysms at its proximal arch and descending distal segments with stable aneurysm at the brachiocephalic. No findings of vessel rupture. Dictated by: Dictated on workstation # [id number]
== END ==
LOC: RAD 13:45
PROVIDERS: ATTEND Nurse Practitioner Family
DX: Z12.2 Encounter for screening for malignant neoplasm of respiratory organs (principal); F17.210 Nicotine dependence, cigarettes, uncomplicated
CPT/HCPCS: 71271

== ENCOUNTER 2020-11-17 07:20 | Inpatient (IN) | payer MEDICARE ==
[~2020-11-17] VITALS: Ht 160 cm; Wt 54.6 kg
[~2020-11-17 07:20] MED LIST changes: -LISI-552 PO; +LISI20TA26 PO
--- NOTE | 2020-11-17 07:24 | ED Abdominal Pain ---
General Chief Complaint: Abdominal/GI Problems Stated Complaint: LEFT SIDE PAIN Source of Information: Family Exam Limitations: Language Barrier History of Present Illness Date Seen by Provider: Nov 17, 2020 Time Seen by Provider: 07:24 Initial Comments 69-year-old female presents with left-sided abdominal pain which began at 3 AM this morning. Pain is sharp and severe and getting worse. No associated nausea vomiting, no recent illness, fever or chills. No problems with constipation or diarrhea. Her son does states she has a history of kidney stones. Allergies and Home Medications Allergies Coded Allergies: aspirin (Verified Allergy, Mild, 01/05/19) Home Medications Albuterol Sulfate 1 Puff Puff, 2 PUFF INH QID, (Reported) 1 PUFF = 90 MCG Aspirin 81 Mg Tablet.dr, 81 MG PO DAILY, (Reported) Buspirone HCl 10 Mg Tablet, 10 MG PO BID, (Reported) Carvedilol 6.25 Mg Tablet, 6.25 MG PO BID, (Reported) Clopidogrel Bisulfate 75 Mg Tablet, 75 MG PO DAILY, (Reported) Fluticasone/Vilanterol 1 Each Blst.w.dev, 1 EACH IH DAILY, (Reported) Gabapentin 300 Mg Capsule, 300 MG PO DAILY, (Reported) Lisinopril 20 Mg Tablet, 20 MG PO DAILY, (Reported) Prednisone 10 Mg Tab, 10 MG PO DAILY, (Reported) Rosuvastatin Calcium 10 Mg Tablet, 10 MG PO HS, (Reported) Tramadol HCl 50 Mg Tablet, 50 MG PO Q4H, (Reported) Patient Home Medication List Home Medication List Reviewed: Yes Review of Systems Review of Systems Constitutional: No fever, No malaise, No weakness Respiratory: Denies Cough, Denies Shortness of Air Cardiovascular: Denies Chest Pain, Denies Lightheadedness, Denies Palpitations, Denies Syncope Gastrointestinal: See HPI, Abdominal Pain; Denies Constipated, Denies Diarrhea, Denies Nausea, Denies Poor Appetite, Denies Poor Fluid Intake, Denies Vomiting Genitourinary: See HPI; Denies Burning, Denies Frequency, Denies Flank Pain, Denies Pain, Denies Urgency Musculoskeletal: No back pain, No joint pain Skin: No change in color, No lesions, No rash Past Yxunelc-Rjamfh-Mnyyxo Hx Past Med/Social Hx: Reviewed Nursing Past Med/Soc Hx Patient Social History Type Used: Cigarettes 2nd Hand Smoke Exposure: Yes Recent Hopitalizations: Yes Past Medical History Bowel Surgery Respiratory: Yes Asthma Currently Using CPAP: Yes Cardiac: Yes High Cholesterol Neurological: No Genitourinary: No Gastrointestinal: Yes Irritable Bowel Cancer: No Blood Disorders: No Adverse Reaction/Blood Tranf: No Physical Exam Vital Signs Vital Signs - First Documented 11/17/20 11/17/20 07:22 12:05 Temp 36.4 Pulse 88 Resp 16 B/P (MAP) 156/80 (105) Pulse Ox 95 O2 Delivery Room Air O2 Flow Rate 2.00 Capillary Refill : Height/Weight/BMI Height: 5'2.00" Weight: 123lbs. 0.0oz. [id number]; 22.7 BMI Method:Stated General Appearance: moderate distress (abdominal pain); No severe distress Respiratory: chest non-tender, lungs clear, normal breath sounds, no respiratory distress, no accessory muscle use Cardiovascular: regular rate, rhythm, no edema, no JVD Gastrointestinal: soft, no organomegaly, no pulsatile mass; No distended, No guarding, No rebound; tenderness; No hernia, No mass, No hepatomegaly, No spleenomegaly Extremities: non-tender, no pedal edema, no calf tenderness Back: normal inspection, no CVA tenderness Focused Exam Lactate Level 11/17/20 07:44: Lactic Acid Level 5.85*H Lactic Acid Level Laboratory Tests Test 11/17/20 07:44 Lactic Acid Level 5.85 MMOL/L (0.50-2.00) *H Progress/Results/Core Measures Results/Orders Lab Results Laboratory Tests Test 11/17/20 07:34 11/17/20 07:44 11/17/20 08:49 Range/Units White Blood Count 15.3 H 4.3-11.0 10^3/uL Red Blood Count 3.52 L 4.35-5.85 10^6/uL Hemoglobin 10.5 L 11.5-16.0 G/DL Hematocrit 35 35-52 % Mean Corpuscular Volume 99 80-99 FL Mean Corpuscular Hemoglobin 30 25-34 PG Mean Corpuscular Hemoglobin Concent 30 L 32-36 G/DL Red Cell Distribution Width 13.5 10.0-14.5 % Platelet Count 205 130-400 10^3/uL Mean Platelet Volume 9.9 7.4-10.4 FL Immature Granulocyte % (Auto) 1 % Neutrophils (%) (Auto) 76 H 42-75 % Lymphocytes (%) (Auto) 17 12-44 % Monocytes (%) (Auto) 6 0-12 % Eosinophils (%) (Auto) 1 0-10 % Basophils (%) (Auto) 0 0-10 % Neutrophils # (Auto) 11.6 H 1.8-7.8 X 10^3 Lymphocytes # (Auto) 2.6 1.0-4.0 X 10^3 Monocytes # (Auto) 0.9 0.0-1.0 X 10^3 Eosinophils # (Auto) 0.1 0.0-0.3 10^3/uL Basophils # (Auto) 0.1 0.0-0.1 10^3/uL Immature Granulocyte # (Auto) 0.1 0.0-0.1 10^3/uL Neutrophils % (Manual) 79 % Lymphocytes % (Manual) 13 % Monocytes % (Manual) 8 % Sodium Level 144 135-145 MMOL/L Potassium Level 4.9 3.6-5.0 MMOL/L Chloride Level 102 98-107 MMOL/L Carbon Dioxide Level 29 21-32 MMOL/L Anion Gap 13 5-14 MMOL/L Blood Urea Nitrogen 27 H 7-18 MG/DL Creatinine 1.42 H 0.60-1.30 MG/DL Estimat Glomerular Filtration Rate 36 BUN/Creatinine Ratio 19 Glucose Level 285 H 70-105 MG/DL Calcium Level 9.3 8.5-10.1 MG/DL Corrected Calcium 9.7 8.5-10.1 MG/DL Total Bilirubin 0.2 0.1-1.0 MG/DL Aspartate Amino Transf (AST/SGOT) 67 H 5-34 U/L Alanine Aminotransferase (ALT/SGPT) 21 0-55 U/L Alkaline Phosphatase 91 40-136 U/L Total Protein 5.9 L 6.4-8.2 GM/DL Albumin 3.5 3.2-4.5 GM/DL Lipase 110 H 8-78 U/L Lactic Acid Level 5.85 *H 0.50-2.00 MMOL/L Urine Color YELLOW Urine Clarity CLEAR Urine pH 6.0 5-9 Urine Specific [place] >=1.030 1.016-1.022 Urine Protein 2+ H NEGATIVE Urine Glucose (UA) TRACE H NEGATIVE Urine Ketones NEGATIVE NEGATIVE Urine Nitrite NEGATIVE NEGATIVE Urine Bilirubin NEGATIVE NEGATIVE Urine Urobilinogen 0.2 < = 1.0 MG/DL Urine Leukocyte Esterase NEGATIVE NEGATIVE Urine RBC (Auto) 1+ H NEGATIVE Urine RBC 2-5 H /HPF Urine WBC RARE /HPF Urine Squamous Epithelial Cells 5-10 /HPF Urine Crystals PRESENT H /LPF Urine Amorphous Sediment LARGE CEZAR URATES H /LPF Urine Bacteria TRACE /HPF Urine Casts PRESENT /LPF Urine Hyaline Casts 2-5 H /LPF Urine Granular Casts 5-10 H /LPF Urine Coarse Granular Casts 2-5 H /LPF Urine Mucus SMALL H /LPF Urine Culture Indicated NO My Orders Orders - ROVENSTINE,SHARAD L DO Ed Iv/Invasive Line Start (11/17/20 07:32) Cbc With Automated Diff (11/17/20 07:32) Comprehensive Metabolic Panel (11/17/20 07:32) Lipase (11/17/20 07:32) Lactic Acid Analyzer (11/17/20 07:32) Urinalysis (11/17/20 07:32) Fentanyl Inj (Sublimaze Injection) (11/17/20 07:45) Ns Iv 1000 Ml (Sodium Chloride 0.9%) (11/17/20 07:45) Manual Differential (11/17/20 07:34) Ct Abdomen/Pelvis Wo (11/17/20 07:32) Ns Iv 1000 Ml (Sodium Chloride 0.9%) (11/17/20 09:15) Fentanyl Inj (Sublimaze Injection) (11/17/20 09:45) Medications Given in ED Current Medications Medications Dose Ordered Sig/Carli Route Start Time Stop Time Status Last Admin Dose Admin Fentanyl Citrate 50 mcg ONCE ONCE IVP 11/17/20 07:45 11/17/20 07:46 DC 11/17/20 07:41 50 MCG Fentanyl Citrate 50 mcg ONCE ONCE IVP 11/17/20 09:45 11/17/20 09:46 DC 11/17/20 09:42 50 MCG Vital Signs/I&O 11/17/20 11/17/20 07:22 12:05 Temp 36.4 36.3 Pulse 88 93 Resp 16 16 B/P (MAP) 156/80 (105) 101/64 Pulse Ox 95 94 O2 Delivery Room Air Nasal Cannula O2 Flow Rate 2.00 Progress Progress Note : Progress Note Call from RAD re "ruptured aneurysm" w left HemiThorax @ 0836. Called [facility] and spoke to Surgeon @ 0840 - states he can't do surgery. Called [facility], spoke to Dr Shell @ 0905 who states that he doesn't have the proper fletcher and advised to send to [facility] Called [facility] @ [address] Garcia @ 0929 who states he needs to talk to another CTS regarding possibility of repair Called [phone] and asked why not emergently transferring....states waiting on accepting CTS 1008, spoke to Dr Garcia again who had spoken to Dr Sunshine. Explained to me that patient was known to Dr Sunshine and he had last seen her June 2020 (he has seen patient 3 times) and told her she was not a surgical candidate for a known thoracic aneurysm. (due to the nature and extent of the aneurysm) Dr Garcia, states only palliative care option for her as their is no surgical option for her. Spoke to patients family member, who now admits she had been seen @ and states they were going to send her to [place] for surgery. Explained to him that there is not a surgical option for repair at this time and we can only keep her comfortable. Offered to admit to [facility]....also suggested that Hospice care would be appropriate, but family very reluctant to go this route. Did tell family her condition was terminal and nothing could be done for her. They expressed understanding and gratitude. Initial ECG Impression Time: 08:54 Initial ECG Rate: 88 Initial ECG Rhythm: Normal Sinus Initial ECG Comparisson: No Previous ECG Available Comment [facility] Diagnostic Imaging Diagonstic Imaging: CT Comments Date of Exam:11/17/20 CT ABDOMEN/PELVIS WO EXAMINATION: CT Abdomen Pelvis without contrast. TECHNIQUE: Multiple contiguous axial images were obtained through the abdomen and pelvis without the use of intravenous contrast. All CT scans use one or more of the following dose optimizing techniques: automated exposure control, MA and/or KvP adjustment based on a patient size and exam type, or iterative reconstruction. HISTORY: Left-sided abdominal pain COMPARISON: 01/06/2019 FINDINGS: Limited views of the lower thorax show a large left hemothorax. There is a very large aortic aneurysm with several irregular areas of outpouching. The aorta measures 7.3 x 6.3 cm. There is a hyperdense crescent within the posterior left lateral wall of the aorta with hyperdense clot adherent to the aorta at this level. Overall, findings are consistent with rupture of the aorta into the left hemithorax. The liver is normal without focal lesion. Gallbladder contains small stones. There is no biliary ductal dilation. Pancreas is normal. Spleen is normal. Adrenal glands are normal. Simple cysts are present in the right kidney. No suspicious renal lesions. There is no hydronephrosis. Urinary bladder is normal. Visualized bowel is normal in caliber without obstruction or inflammation. No free fluid or air. No abdominal or pelvic lymphadenopathy. There is a stent present in the superior mesenteric artery. There are stents present in the iliac artery origins. Abdominal aorta is atherosclerotic and aneurysmal measuring up to 3.0 cm. There are no suspicious osseus lesions. IMPRESSION: 1. Marked aneurysmal dilation of the descending thoracic aorta with several areas of outpouching and a hyperdense crescent along the wall in association with a large left hemothorax and adherent clot to the descending aorta. These findings are consistent with an acute aortic rupture into the left hemithorax. These critical findings were called to Dr. Robles immediately upon opening the case by Dr. Munoz on 11/17/2020 at 8:40 AM. Dictated on workstation # [id number] Dict: 11/17/20 0826 Trans: 11/17/20 0906 [facility] [id number] Interpreted by: BENEDICTO MUNOZ MD Electronically signed by: Departure Communication (Admissions) Dr baum accepts for admission w plans to transition to hospice if needed. Impression Primary Impression: Abdominal pain Qualified Codes: R10.9 - Unspecified abdominal pain Additional Impressions: Thoracic aortic aneurysm, ruptured End of life care Disposition: 30 STILL A PATIENT Condition: Critical Transfer Transfer Reason: Exceeds level of care Transfer Facility: [facility] Method of Transfer: Air Departure-Patient Inst. Referrals: TRISH OSBORNE MD (PCP/Family) Primary Care Physician SHARAD ROBLES DO Nov 17, 2020 07:24
[2020-11-17 07:40] LABS: BASOPHILS # (AUTO) 0.1 10^3/uL (0.0-0.1); BASOPHILS % (AUTO) 0 % (0-10); EOSINOPHILS # (AUTO) 0.1 10^3/uL (0.0-0.3); EOSINOPHILS % (AUTO) 1 % (0-10); HEMATOCRIT 35 % (35-52); HEMOGLOBIN 10.5 G/DL (11.5-16.0); LYMPHOCYTES # (AUTO) 2.6 X 10^3 (1.0-4.0); LYMPHOCYTES % (AUTO) 17 % (12-44); MEAN CORPUSCULAR HEMOGLOBIN 30 PG (25-34); MEAN CORPUSCULAR HGB CONC 30 G/DL (32-36); MEAN CORPUSCULAR VOLUME 99 FL (80-99); MEAN PLATELET VOLUME 9.9 FL (7.4-10.4); MONOCYTES # (AUTO) 0.9 X 10^3 (0.0-1.0); MONOCYTES % (AUTO) 6 % (0-12); NEUTROPHILS # (AUTO) 11.6 X 10^3 (1.8-7.8); NEUTROPHILS % (AUTO) 76 % (42-75); PLATELET COUNT 205 10^3/uL (130-400); WHITE BLOOD COUNT 15.3 10^3/uL (4.3-11.0)
[2020-11-17] MEDS ORDERED: NS IV 1000 ML 1,000 ML IV SCH ×3 (07:45→13:15)
[2020-11-17] MEDS ORDERED: fentaNYL INJ 100 MCG/2 ML AMP IVP ONE ×2 (07:45→09:45)
[2020-11-17 07:54] LABS: POTASSIUM 4.9 MMOL/L (3.6-5.0)
[2020-11-17 07:55] LABS: ALBUMIN 3.5 GM/DL (3.2-4.5); BILIRUBIN,TOTAL 0.2 MG/DL (0.1-1.0); CALCIUM 9.3 MG/DL (8.5-10.1); CREATININE SERUM 1.42 MG/DL (0.60-1.30); TOTAL PROTEIN 5.9 GM/DL (6.4-8.2)
[2020-11-17 08:24] LABS: LYMPHOCYTES % (MANUAL) 13 %; MONOCYTES % (MANUAL) 8 %; NEUTROPHILS % (MANUAL) 79 %
[2020-11-17 09:02] LABS: AMORPHOUS SEDIMENT,UR LARGE AMOR URATES /LPF; BACTERIA,URINE TRACE /HPF; BILIRUBIN,URINE NEGATIVE (NEGATIVE); CLARITY,URINE CLEAR; COLOR,URINE YELLOW; GLUCOSE, URINE (UA) TRACE (NEGATIVE); KETONES,URINE NEGATIVE (NEGATIVE); LEUKOCYTE ESTERASE ,URINE NEGATIVE (NEGATIVE); NITRITE,URINE NEGATIVE (NEGATIVE); PROTEIN,URINE 2+ (NEGATIVE); WBC,URINE RARE /HPF
--- NOTE | 2020-11-17 09:07 | Diagnostic Imaging Report ---
EXAMINATION: CT Abdomen Pelvis without contrast. TECHNIQUE: Multiple contiguous axial images were obtained through the abdomen and pelvis without the use of intravenous contrast. All CT scans use one or more of the following dose optimizing techniques: automated exposure control, MA and/or KvP adjustment based on a patient size and exam type, or iterative reconstruction. HISTORY: Left-sided abdominal pain COMPARISON: 01/06/2019 FINDINGS: Limited views of the lower thorax show a large left hemothorax. There is a very large aortic aneurysm with several irregular areas of outpouching. The aorta measures 7.3 x 6.3 cm. There is a hyperdense crescent within the posterior left lateral wall of the aorta with hyperdense clot adherent to the aorta at this level. Overall, findings are consistent with rupture of the aorta into the left hemithorax. The liver is normal without focal lesion. Gallbladder contains small stones. There is no biliary ductal dilation. Pancreas is normal. Spleen is normal. Adrenal glands are normal. Simple cysts are present in the right kidney. No suspicious renal lesions. There is no hydronephrosis. Urinary bladder is normal. Visualized bowel is normal in caliber without obstruction or inflammation. No free fluid or air. No abdominal or pelvic lymphadenopathy. There is a stent present in the superior mesenteric artery. There are stents present in the iliac artery origins. Abdominal aorta is atherosclerotic and aneurysmal measuring up to 3.0 cm. There are no suspicious osseus lesions. IMPRESSION: 1. Marked aneurysmal dilation of the descending thoracic aorta with several areas of outpouching and a hyperdense crescent along the wall in association with a large left hemothorax and adherent clot to the descending aorta. These findings are consistent with an acute aortic rupture into the left hemithorax. These critical findings were called to Dr. Robles immediately upon opening the case by Dr. Munoz on 11/17/2020 at 8:40 AM. Dictated by: Dictated on workstation # [id number]
[2020-11-17 13:04] VITALS: BP 101/42
[2020-11-17] MEDS: morphine INJ 4 MG/ML 1 ML (VIAL/SYRINGE) IV PRN ×2 (13:09→14:38)
[2020-11-17] MEDS ORDERED: ONDANSETRON 4 MG/2 ML (SDV) Z0FRAN IV PRN (13:15)
[2020-11-17] MEDS ORDERED: LORazepam INJ 2 MG/ML (ATIVAN) VIAL ONE (14:29)
[2020-11-17] MEDS ORDERED: BISACODYL 10 MG SUPP (DULCOLAX) PR PRN (14:30)
[2020-11-17] MEDS ORDERED: ACETAMINOPHEN 650 MG SUPP (TYLENOL) PR PRN (14:30)
[2020-11-17] MEDS ORDERED: GLYCOPYRROLATE 0.2 MG/ML (ROBINUL) 2 ML VIAL IV PRN (14:30)
[2020-11-17] MEDS ORDERED: PROMETHAZINE INJ 25 MG/ML (PHENERGAN) AMP IVP PRN (14:30)
[2020-11-17] MEDS ORDERED: RT-ALBUTEROL/IPRATROPIUM 3 ML (DUONEB) VIAL INH PRN (14:30)
[2020-11-17] MEDS ORDERED: LORazepam INJ 2 MG/ML (ATIVAN) VIAL IVP PRN (14:30)
[2020-11-17] MEDS ORDERED: SALIVA STIMULANT MOUTH SPRAY (BIOTENE) 1.5 OZ MM PRN (14:30)
[2020-11-17] MEDS ORDERED: ARTIFICAL TEARS 0.4 ML UNIT DOSE (REFRESH PLUS) OU PRN (14:30)
[2020-11-17] MEDS ORDERED: morphine PCA 100 MG/100 ML BAG IV PRN (15:45)
--- NOTE | 2020-11-17 16:39 | History & Physical-Hospitalist ---
History of Present Illness HPI/Chief Complaint Pt. seen in EDupon arrival from [place]. Pt c/o pain in back and abdomen. Hx taken with my limited turkmen and hx from ER physician. She was diagnosed with a descendeing thoracic aneurysm some time and seen and [facility] where they felt they it was inorerable. CT shows rupture of aneurysm and left hemothorax. Pt is admitted for paliative car as famil doesn't wish for her to come home. Source: patient, RN/MD Exam Limitations: clinical condition, language barrier Date Seen 11/17/20 Time Seen by a Provider: 12:45 Attending Physician Dominguez Carlos MD PCP Trish Mayes MD Referring Physician Date of Admission Nov 17, 2020 at 12:45 Home Medications & Allergies Home Medications Reviewed patient Home Medication Reconciliation performed by pharmacy medication reconciliations ammonia technician and/or nursing. Patients Allergies have been reviewed. Allergies Allergies Coded Allergies aspirin (Verified Allergy, Mild, 01/05/19) Patient Social History Employed/Student: retired Smoking Status: Current Everyday Smoker Immunizations Up To Date Influenza Vaccine Up-to-Date: No; Not Current Current Status Do you have an Advance Directi: Yes Communicates: Verbally Primary Language: [place] Preferred Spoken Language: [place] Is interpretation needed?: Yes Implanted or Applied Medical D: None Past Medical History Thoracic aneurysm HTN COPD Review of Systems Constitutional: see HPI EENTM: no symptoms reported Respiratory: no symptoms reported Cardiovascular: chest pain Gastrointestinal: abdominal pain (RUQ) Genitourinary: no symptoms reported Musculoskeletal: back pain Skin: no symptoms reported Psychiatric/Neurological: No Symptoms Reported Physical Exam Physical Exam Vital Signs Vital Signs - First Documented 11/17/20 11/17/20 07:22 12:05 Temp 36.4 Pulse 88 Resp 16 B/P (MAP) 156/80 (105) Pulse Ox 95 O2 Delivery Room Air O2 Flow Rate 2.00 Capillary Refill : Less Than 3 Seconds Height, Weight, BMI Height: 5'2.00" Weight: 123lbs. 0.0oz. [id number]; 21.32 BMI Method:Stated General Appearance: Anxious, Mild Distress HEENT: Normal ENT Inspection Neck: Limited Range of Motion Respiratory: Lungs Clear, No Accessory Muscle Use, No Respiratory Distress, Decreased Breath Sounds Cardiovascular: Regular Rate, Rhythm Gastrointestinal: Non Tender, Soft Extremity: No Pedal Edema, Other (cool with no pulses) Neurologic/Psychiatric: Alert, No Motor/Sensory Deficits, Other (anxious in pain) Skin: Pallor Results Results/Procedures Labs Laboratory Tests 11/17/20 07:34 Patient resulted labs reviewed. Imaging: Reviewed Imaging Report Assessment/Plan Admission Diagnosis Dissecting descending thoracic aneurysm- plan to admit for terminal comfort care Admission Status: Inpatient Order (span 2 midnights) Reason for Inpatient Admission: terminal care Copy Copies To 1: TRISH MAYES MD Supervisory-Addendum Brief Verification & Attestation Participated in pt care: history, MDM, physical Personally performed: exam, history, MDM Care discussed with: other (ER doctor) Procedures: n/a no student DOMINGUEZ CARLOS MD Nov 17, 2020 16:38
== END 2020-11-17 19:37 | disposition expired | DRG 951 ==
LOC: EDUNIT# 07:20 → ER FS 07:22 → 4TH 12:45
PROVIDERS: ADMIT Internal Medicine; ATTEND Internal Medicine
DX: Z51.5 Encounter for palliative care (principal); I71.1 Thoracic aortic aneurysm, ruptured; J94.2 Hemothorax; E78.00 Pure hypercholesterolemia, unspecified; K58.9 Irritable bowel syndrome, unspecified; Z79.52 Long term (current) use of systemic steroids; Z88.6 Allergy status to analgesic agent; Z66 Do not resuscitate; J44.9 Chronic obstructive pulmonary disease, unspecified; I10 Essential (primary) hypertension; F17.210 Nicotine dependence, cigarettes, uncomplicated
CPT/HCPCS: 36415; 51702; 74176; 80053; 81000; 83605; 83690; 85007; 85027; 93005